=== PATIENT | female | born 1970 | race Asian ===

== ENCOUNTER → 2020-01-22 16:55 | Outpatient (ROUT) | payer SELFPAY ==
[2020-01-23 19:06] LABS: COVID19 Sendout Not Detected (Not Detect)
== END ==
PROVIDERS: Visit Provider Internal Medicine
DX: Z11.59 Encounter for screening for other viral diseases (principal)
CPT/HCPCS: 87635

== ENCOUNTER 2023-04-02 23:54 | Emergency (ER) | payer OTHER, SELFPAY ==
[2023-04-02 23:56] VITALS: BP 147/68; PULSE 56; RESP 16; TEMP 36.2; O2SAT 100; BMI 21.1
--- NOTE | 2023-04-03 00:36 | ED_ITS ---
HPI - General Adult General Chief complaint: Blood/Body fluid exposure Stated complaint: needle stick/finger at work Time Seen by Provider: 04/03/23 00:05 Source: patient Mode of arrival: Ambulatory Limitations: no limitations History of Present Illness HPI narrative: 52-year-old female with history of dyslipidemia, up-to-date on her hepatitis and tetanus immunizations. Patient works at [employer]. 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 Facility does not have them in the rooms or outside the room close by, their protocol is to wipe down syringes and then disposed of them. She did not realize the cap had been removed and accidentally stuck herself in her index finger. The needle was for subcutaneous insulin, she states the area did bleed right away she did wash it. She states patient has a history of hepatitis C, unsure if he has active disease or previous history. She states she is not suspicious for HIV or hepatitis-B based on his history. Patient denies any other injuries. She no known drug allergies. 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 She is unsure if they are in process of having labs ordered to check from the source. Related Data Home Medications Medication Instructions Recorded Confirmed CALCIUM CARBONATE (#CALCIUM) 500 mg PO Q DAY ##0 08/16/11 CHOLECALCIFEROL (VITAMIN D3) 2,000 iu PO Q DAY ##0 08/16/11 (Vitamin D-3) ESOMEPRAZOLE SODIUM (NEXIUM) 20 mg PO QDAY@0600 ##0 08/16/11 ibandronate 150 mg tablet (Boniva) 150 mg PO QMONTH ##0 08/16/11 Allergies Allergy/AdvReac Type Severity Reaction Status Date / Time hydromorphone [HYDROMORPHONE] Allergy Unknown Unverified 09/21/17 12:20 Penicillins [PENICILLINS] Allergy Unknown Unverified 09/21/17 12:20 Review of Systems Review of Systems ROS Unobtainable: All systems reviewed & are unremarkable except as noted in HPI and below Exam Narrative Exam Narrative: GENERAL: Alert and oriented x three, well-appearing female in no acute distress HEENT: Head normocephalic, atraumatic, EOMI, pupils reactive, face symmetric, mo ist mucous membranes NECK: Supple, full range of motion CARDIOVASCULAR: Regular rate and rhythm without murmurs, rubs or gallops. RESPIRATORY: Breath sounds equal bilaterally, no wheezes rales or rhonchi. ABDOMEN: Soft, nontender. Normoactive bowel sounds all 4 quadrants. No guarding or rebound, rigidity, no mass EXTREMITIES: Normal range of motion, no clubbing or edema. Neurovascularly intact NEUROLOGICAL: Cranial nerves II through XII grossly intact. Moving all extremities SKIN: Warm, dry, no petechiae, no rashes or lesions, small puncture right index finger. Initial Vital Signs Initial Vital Signs: Vital Signs Temperature 97.2 F L 04/02/23 23:56 Pulse Rate 56 L 04/02/23 23:56 Respiratory Rate 16 04/02/23 23:56 Blood Pressure 147/68 H 04/02/23 23:56 Pulse Oximetry 100 04/02/23 23:56 Oxygen Delivery Method Room Air 04/02/23 23:56 Course Orders Ordered: ED Orders 04/03/23 00:49 Alanine Aminotransferase Stat HIV 1 & 2 Ab/Ag 4th Gen Combo Stat Hep C Virus Ab w/Reflex Quant Stat Vital Signs Vital signs: Vital Signs - 8 hr 04/02/23 23:56 Temperature 97.2 F L Pulse Rate 56 L Respiratory Rate 16 Blood Pressure 147/68 H Pulse Oximetry 100 Oxygen Delivery Method Room Air Medical Decision Making Lab Data Labs: Lab Results 04/03/23 Range/Units 00:49 ALT 33 (<35) IU/L Hepatitis C Antibody Negative (NEGATIVE) s/c HIV 1&2 Ab/P24 Ag 4thGn Negative (NEGATIVE) MDM Narrative Medical decision making narrative: Viral panel was obtained. Discussed with patient her suspicion for HIV is somewhat lower, she defers prophylaxis, discussed risks versus benefits. Did discuss hepatitis-B immunoglobulin but she states patient has history of hepatitis-C but no suspicion for hep B and she after discussion decision she would like that to pursue. Discussed with patient is important for the source to have lab testing to check for viral loads and baseline labs. Based on labs were obtained here. Patient's and I discussed we will reach out to her with initial results but some while take about a week to result. Patient states cell phone #[phone] for follow-up. Discussed importance of follow-up with serial testing. All questions answered. Also discussed wound care. L&I paperwork completed. Discharge Plan Departure Patient Disposition: Home Clinical Impression: Exposure to blood or body fluid, Needle stick injury of finger of right hand Instructions: DI for Accidental Exposure to Body Fluids Activity Restrictions/Additional Instructions: Follow-up with L and I or serial testing, your labs are pending. Portion nurse and now and should be resulted within the week. The source patient should also be tested for baseline labs including HIV and hepatitis panel with viral load. Please call to set up follow up with L&I or primary care if they do L&I. Wound Care: Keep wound(s) clean and dry. Wash daily with soap and water only. Do not use over the counter products (alcohol or peroxide)on the wounds unless instructed by a physician. If wound condition worsens (increased/expanding redness, developing fluid blisters, or worsening pain), either contact your doctor for an urgent re- assessment , or return to the Emergency Department. Return to the Emergency Department for any new or worsening symptoms. Return if fever greater than 100.4 Fahrenheit, increased swelling, increasing pain or worsening symptoms such as increased discharge or spreading redness. Prescriptions: No Action ibandronate [Boniva] 150 MG tablet 150 mg PO QMONTH Qty: 0 CALCIUM CARBONATE (#CALCIUM) 500 mg PO Q DAY Qty: 0 CHOLECALCIFEROL (VITAMIN D3) (Vitamin D-3) 2,000 iu PO Q DAY Qty: 0 ESOMEPRAZOLE SODIUM (NEXIUM) 20 mg PO QDAY@0600 Qty: 0 Stand Alone Forms: Patient Portal/API
[2023-04-03 03:04] LABS: Alanine Aminotransferase 33 IU/L (<35)
[2023-04-03 05:06] LABS: HIV 1 & 2 Ab/Ag 4th Gen Combo NEGATIVE (NEGATIVE); Hep C Virus Ab w/Reflex Quant NEGATIVE s/c (NEGATIVE)
[2023-04-05 05:47] LABS: Hepatitis B Surf Ab Qualitativ Reactive (.)
== END 2023-04-03 01:08 | disposition home or self-care (01) ==
PROVIDERS: Emergency Provider Emergency Medicine
DX: Z77.21 Contact with and (suspected) exposure to potentially hazardous body fluids (principal); W46.0XXA Contact with hypodermic needle, initial encounter; Z23 Encounter for immunization
CPT/HCPCS: 36415; 84460; 86706; 86803; 87389; 99281; 99282

== ENCOUNTER → 2023-05-23 15:19 | Outpatient (CLI) | payer OTHER, SELFPAY ==
[2023-05-24 15:10] LABS: Hep C Virus Ab w/Reflex Quant NEGATIVE s/c (NEGATIVE)
== END ==
PROVIDERS: Referring Provider Internal Medicine; Visit Provider Internal Medicine
DX: B19.20 Unspecified viral hepatitis C without hepatic coma (principal)
CPT/HCPCS: 36415; 86803